=== PATIENT | male | born 1990 | race Caucasian/White ===

== ENCOUNTER 2017-12-05 09:45 | Emergency (ER) | payer SELFPAY ==
[2017-12-05 09:45] VITALS: BP 137/92; PULSE 93; RESP 24; TEMP 36.6; O2SAT 99; BMI 28.8
--- NOTE | 2017-12-05 09:57 | ED.VISSUMM ---
- ER Visit Summary Date of Service: 12/05/17 Chief Complaint: Fall w/ head injury History of Present Illness: The patient is a 27 M states he is walking down steps his head on a low overpass and fell to the ground. Unsure if he lost consciousness or not. Complaining of mild headache. He is on no blood thinners. He denies any neurological symptoms. This occurred this morning. He has some abrasions to his left arm but otherwise denies other complaints. Physical Examination: Well appearing young male. Vital signs are stable and afebrile. H EENT exam pupils are reactive light. TMs are normal no hemotympanum. Really no significant signs of facial trauma than a mild contusion to his forehead. There is no lacerations. No significant hematoma. No dental injury. No malocclusion. C-spine nontender normal range of motion. Lungs clear to auscultation bilaterally. Heart regular rate and rhythm no murmur. Chest wall nontender. Abdomen soft nontender. No signs of trauma. No peritoneal signs. Pelvic girdle intact. He is moving all 4 extremities. They are neurovascularly intact. Nontender no deformity. Minor abrasion left forearm. 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 Back exam nontender spine nontender. Neurologically is awake and alert without focal motor deficits. GCS of 15. Test Results: None Emergency Department Course and Treatment: She has a closed head injury. He is a normal neurologic exam. His NIH is 0. He is just this is 15. He got up and ambulate without any difficulty nor any ataxia. I do not think he needs any imaging. Treatment Plan: Tylenol for pain. Follow head injury instructions. Disposition: Discharge Impression: Acute fall with closed head injury Left forearm abrasion This note was generated with [employer] dictation software. It may contain incorrect words, spelling, and punctuation that were not noted in review of the chart prior to signing ED Disposition - Plan for ED Patient: Chief Complaint: Fall Referrals: Care Physician,No Primary [Primary Care Provider] -
--- NOTE | 2017-12-05 10:01 | ED.DCSUM_ITS ---
- ER Visit Summary Date of Service: 12/05/17 Chief Complaint: Fall w/ head injury History of Present Illness: The patient is a 27 M states he is walking down steps his head on a low overpass and fell to the ground. Unsure if he lost consciousness or not. Complaining of mild headache. He is on no blood thinners. He denies any neurological symptoms. This occurred this morning. He has some abrasions to his left arm but otherwise denies other complaints. Physical Examination: Well appearing young male. Vital signs are stable and afebrile. H EENT exam pupils are reactive light. TMs are normal no hemotympanum. Really no significant signs of facial trauma than a mild contusion to his forehead. There is no lacerations. No significant hematoma. No dental injury. No malocclusion. C-spine nontender normal range of motion. Lungs clear to auscultation bilaterally. Heart regular rate and rhythm no murmur. Chest wall nontender. Abdomen soft nontender. No signs of trauma. No peritoneal signs. Pelvic girdle intact. He is moving all 4 extremities. They are neurovascularly intact. Nontender no deformity. Minor abrasion left forearm. 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 Back exam nontender spine nontender. Neurologically is awake and alert without focal motor deficits. GCS of 15. Test Results: None Emergency Department Course and Treatment: She has a closed head injury. He is a normal neurologic exam. His NIH is 0. He is just this is 15. He got up and ambulate without any difficulty nor any ataxia. I do not think he needs any imaging. Treatment Plan: Tylenol for pain. Follow head injury instructions. Disposition: Discharge Impression: Acute fall with closed head injury Left forearm abrasion This note was generated with [employer] dictation software. It may contain incorrect words, spelling, and punctuation that were not noted in review of the chart prior to signing ED Disposition - Plan for ED Patient: Chief Complaint: Fall Referrals: Care Physician,No Primary [Primary Care Provider] -
--- NOTE | 2017-12-05 10:01 | ED.DEP ---
ED Disposition - Plan for ED Patient: Disposition: Home or Assisted Living Chief Complaint: Fall Instructions: ED Contusion Upper Ext, ED Head Injury Closed Referrals: Andrew Allen MD [NON-STAFF] - As Needed Additional Instructions: Ice to forehead. Tylenol and Motrin for pain. Reason follow head injury instructions. Return if vomiting or not acting right.
[2017-12-05] MEDS: Acetaminophen 500 MG Tablet 1000 MG PO (10:17)
[2017-12-05 10:27] VITALS: BP 137/92
== END 2017-12-05 10:29 | disposition home or self-care (01) ==
PROVIDERS: Emergency Provider Emergency Medicine
DX: S00.83XA Contusion of other part of head, initial encounter (principal); S50.812A Abrasion of left forearm, initial encounter; W10.9XXA Fall (on) (from) unspecified stairs and steps, initial encounter; Y93.01 Activity, walking, marching and hiking; Y92.9 Unspecified place or not applicable; F32.9 Major depressive disorder, single episode, unspecified; F11.90 Opioid use, unspecified, uncomplicated; Z72.0 Tobacco use
CPT/HCPCS: 99283